=== PATIENT | female | born 1960 | race Caucasian/White ===

== ENCOUNTER 2024-07-12 11:09 | Emergency (ER) | payer OTHER ==
[2024-07-12] MEDS: Sodium Chloride 0.9% 10 ML Syringe FLUSH PRN (11:45)
[2024-07-12] MEDS: Ondansetron 4 MG/2 ML SDV IVPUSH ONE (11:56)
[2024-07-12] MEDS: Ketorolac 15 MG/ML SDV IVPUSH ONE (11:56)
[2024-07-12 11:57] LABS: BASOPHILS ABSOLUTE AUTO 0.03 K/uL (0.02-0.10); BASOPHILS PERCENT AUTO 0.3 % (0.0-0.5); EOSINOPHILS ABSOLUTE AUTO 0.03 K/uL (0.04-0.40); EOSINOPHILS PERCENT AUTO 0.3 % (1.0-5.0); HEMATOCRIT 42.9 % (37.0-47.0); HEMOGLOBIN 14.8 g/dL (11.5-16.5); LYMPHOCYTES PERCENT AUTO 9.3 % (20.0-40.0); MEAN CORPUSCULAR HEMOGLOBIN 35.6 pg (27.0-32.0); MEAN CORPUSCULAR HGB CONC 34.5 g/dL (31.0-35.0); MEAN CORPUSCULAR VOLUME 103 fL (76-96); MEAN PLATELET VOLUME 9.6 fL (6.0-10.0); MONOCYTES PERCENT AUTO 7.5 % (3.0-10.0); NEUTROPHILS ABSOLUTE AUTO 8.87 K/uL (2.00-7.50); NEUTROPHILS PERCENT AUTO 82.6 % (45.0-70.0); PLATELET COUNT,PLT 269 K/uL (150-500); RED BLOOD CELL COUNT 4.16 M/uL (3.80-5.80); RED CELL DISTRIBUTION WIDTH 13.4 % (11.0-16.0); WHITE BLOOD CELL COUNT,WBC 10.7 K/uL (4.0-11.0)
[2024-07-12] MEDS: Sodium Chloride 0.9% 1,000 ML IV ONE (11:58)
[2024-07-12] MEDS ORDERED: Naloxone 2 MG/2 ML Syringe IVPUSH PRN (12:41)
[2024-07-12] MEDS: Morphine 4 MG/ML VIAL IVPUSH ONE (12:47)
[2024-07-12] MEDS: Ampicillin/Sulbactam Na 3 GM in Sodium Chloride 0.9% 100 ML IV ONE (12:57)
[2024-07-12] MEDS: Penicillin G Potassium 5 MILLUNITS in Sodium Chloride 0.9% 100 ML IV ONE (13:01)
== END 2024-07-12 14:28 | disposition home or self-care (01) ==
LOC: LB.ED 11:09
DX: K04.7 Periapical abscess without sinus (principal); Z90.710 Acquired absence of both cervix and uterus; Z79.899 Other long term (current) drug therapy
CPT/HCPCS: 36415; 85025; 96361; 96365; 96375; 99283; 99283-25; J0295; J1885; J2270; J2405; J7030

== ENCOUNTER 2024-11-16 12:11 | Emergency (ER) | payer MEDICAID ==
[2024-11-16] MEDS: Labetalol 100 MG/20 ML MDV IVPUSH ONE ×2 (12:14→12:32)
[2024-11-16] MEDS ORDERED: Sodium Chloride 0.9% 10 ML Syringe FLUSH PRN (12:32)
[2024-11-16] MEDS: hydrALAZINE 20 MG/ML SDV IVPUSH ONE ×2 (12:51→13:10)
[2024-11-16 12:54] LABS: MEAN PLATELET VOLUME 9.4 fL (6.0-10.0); PLATELET COUNT,PLT 259.0 K/uL (150-500); RED BLOOD CELL COUNT 4.09 M/uL (3.80-5.80); RED CELL DISTRIBUTION WIDTH 14.5 % (11.0-16.0); WHITE BLOOD CELL COUNT,WBC 8.6 K/uL (4.0-11.0)
[2024-11-16] MEDS: diazePAM 5 MG/ML MDV IVPUSH ONE (13:12)
[2024-11-16 15:28] LABS: A/G RATIO 1.2 (0.8-2.0); ALANINE AMINOTRANSFERASE,ALT 36.0 U/L (12-78); ASPARTATE AMNIOTRANSFERASE,AST 24.0 U/L (15-37); BILIRUBIN TOTAL 0.6 mg/dL (0.0-1.0); BLOOD UREA NITROGEN,BUN 6.0 mg/dL (8-26); CARBON DIOXIDE,CO2 26.4 mmol/L (21.0-32.0); CHLORIDE,CL 102.0 mmol/L (98-107); CREATININE 0.77 mg/dL (0.55-1.02); EST CRCL DRUG DOSING (CG) 66.61 mL/min; ESTIMATED GFR 87.0 mL/min (>60); GLUCOSE RANDOM 114.0 mg/dL (74-100); POTASSIUM,K 3.2 mmol/L (3.5-5.1); PROTEIN TOTAL,TP 7.1 g/dL (6.4-8.2); SODIUM,NA 135.0 mmol/L (136-145); TROPONIN I HIGH SENSITIVITY 6.3 pg/ml (<=60.4)
[2024-11-16] MEDS: Ketorolac 15 MG/ML SDV IVPUSH ONE (18:49)
== END 2024-11-16 19:30 | disposition home or self-care (01) ==
LOC: LB.ED 12:11
DX: I15.9 Secondary hypertension, unspecified (principal); Z90.710 Acquired absence of both cervix and uterus; Z91.012 Allergy to eggs; Z91.040 Latex allergy status; Z79.899 Other long term (current) drug therapy
CPT/HCPCS: 36415; 70450; 71045; 72125; 80053; 83735; 84484; 85027; 85379; 93005; 96365; 96375; 99285; A0425; A0428; A9270; J0360; J1885; J3360; J3480

== ENCOUNTER 2025-02-19 14:21 | Emergency (ER) | payer MEDICAID ==
[2025-02-19] MEDS ORDERED: Sodium Chloride 0.9% 10 ML Syringe FLUSH PRN (14:48)
[2025-02-19] MEDS: Ondansetron 4 MG/2 ML SDV IVPUSH ONE (14:50)
[2025-02-19 14:58] LABS: BASOPHILS ABSOLUTE AUTO 0.04 K/uL (0.02-0.10); BASOPHILS PERCENT AUTO 0.7 % (0.0-0.5); EOSINOPHILS ABSOLUTE AUTO 0.01 K/uL (0.04-0.40); EOSINOPHILS PERCENT AUTO 0.2 % (1.0-5.0); LYMPHOCYTES ABSOLUTE AUTO 1.26 K/uL (1.50-4.00); LYMPHOCYTES PERCENT AUTO 22.1 % (20.0-40.0); MEAN PLATELET VOLUME 9.4 fL (6.0-10.0); MONOCYTES ABSOLUTE AUTO 0.37 K/uL (0.20-0.80); MONOCYTES PERCENT AUTO 6.5 % (3.0-10.0); NEUTROPHILS ABSOLUTE AUTO 4.03 K/uL (2.00-7.50); NEUTROPHILS PERCENT AUTO 70.5 % (45.0-70.0); PLATELET COUNT,PLT 330 K/uL (150-500); RED BLOOD CELL COUNT 4.35 M/uL (3.80-5.80); RED CELL DISTRIBUTION WIDTH 14.6 % (11.0-16.0); WHITE BLOOD CELL COUNT,WBC 5.7 K/uL (4.0-11.0)
[2025-02-19 15:21] LABS: A/G RATIO 1.2 (0.8-2.0); ALANINE AMINOTRANSFERASE,ALT 40.0 U/L (12-78); ASPARTATE AMNIOTRANSFERASE,AST 25.0 U/L (15-37); BILIRUBIN TOTAL 0.4 mg/dL (0.0-1.0); BLOOD UREA NITROGEN,BUN 10.0 mg/dL (8-26); CARBON DIOXIDE,CO2 22.1 mmol/L (21.0-32.0); CHLORIDE,CL 100.0 mmol/L (98-107); CREATININE 0.77 mg/dL (0.55-1.02); EST CRCL DRUG DOSING (CG) 64.11 mL/min; ESTIMATED GFR 87.0 mL/min (>60); GLUCOSE RANDOM 147.0 mg/dL (74-100); PHOSPHORUS 6.2 mg/dL (2.5-4.9); POTASSIUM,K 3.8 mmol/L (3.5-5.1); PROTEIN TOTAL,TP 7.8 g/dL (6.4-8.2); SODIUM,NA 135.0 mmol/L (136-145); TROPONIN I HIGH SENSITIVITY 5.2 pg/ml (<=60.4)
[2025-02-19] MEDS: LORazepam 2 MG/ML SDV IVPUSH ONE (15:46)
[2025-02-19] MEDS: Prochlorperazine 5 MG in Sodium Chloride 0.9% 50 ML IV ONE (16:00)
[2025-02-19] MEDS: Prochlorperazine 10 MG/2 ML SDV IVPUSH ONE (16:01)
[2025-02-19] MEDS: Prochlorperazine 10 MG/2 ML SDV ONE (16:01)
[2025-02-19 17:59] LABS: APPEARANCE,URINE CLEAR (CLEAR); GLUCOSE,URINE NEGATIVE (NEGATIVE); OCCULT BLOOD,URINE TRACE-INTACT (NEGATIVE)
[2025-02-19 18:05] LABS: AMPHETAMINES SCREEN, URINE NEGATIVE (NEGATIVE); METHADONE SCREEN, URINE NEGATIVE (NEGATIVE); METHAMPHETAMINES SCREEN, URINE NEGATIVE (NEGATIVE); OXYCODONE SCREEN,URINE NEGATIVE (NEGATIVE); SQUAMOUS EPITHELIAL CELLS,UR OCCASIONAL /HPF; THC SCREEN,URINE 50 NG/ML POSITIVE (NEGATIVE)
[2025-02-19] MEDS ORDERED: Ondansetron 4 MG Tab.DIS ONE (18:30)
== END 2025-02-19 18:41 | disposition home or self-care (01) ==
LOC: LB.ED 14:21
DX: R11.2 Nausea with vomiting, unspecified (principal); M54.50 Low back pain, unspecified; R45.89 Other symptoms and signs involving emotional state; I15.9 Secondary hypertension, unspecified; F17.210 Nicotine dependence, cigarettes, uncomplicated; I10 Essential (primary) hypertension; Z90.710 Acquired absence of both cervix and uterus; Z79.899 Other long term (current) drug therapy; Z91.0120 Allergy to eggs, unspecified; Z91.040 Latex allergy status
CPT/HCPCS: 36415; 80053; 80307; 81001; 83735; 84100; 84484; 85025; 93005; 96361; 96374; 96375; 99284-25; J0780; J2060; J2405; J7030; Q0162